=== PATIENT | female | born 1960 | race Caucasian/White ===

== ENCOUNTER 2017-01-15 15:34 | Emergency (ER) | payer SELFPAY ==
[2017-01-15 15:40] VITALS: BP 140/85; RESP 20; TEMP 98.1
[2017-01-15] MEDS ORDERED: SODIUM CHLORIDE 0.9% 1,000 ML IV STA ×4 (15:49→17:13)
[2017-01-15] MEDS ORDERED: RX INFO: IV CONTRAST WAS GIVEN 1 EACH MISC MISCELLANE PRN (15:54)
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
[2017-01-15] MEDS: MORPHINE SULFATE 10 MG/ML SYRINGE IVP STA ×2 (16:03→16:24)
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
[2017-01-15] MEDS ORDERED: IPRATROPIUM-ALBUTEROL 3 ML NEB INHALATION STA (16:08)
[2017-01-15 16:23] LABS: Basophils # (A) 0.1 k/uL (0-0.2); Basophils % (A) 1 %; CH 27.9; CHCM 32.9; Eosinophils # (A) 0.1 k/uL (0-0.7); Eosinophils % (A) 1 %; HCT 41.3 % (34.0-46.0); HDW 2.84; HGB 14.1 gm/dL (11.4-16.0); Luc # (Auto) 0.17; Luc % (Auto) 2; Lymphocytes # (A) 3.4 k/uL (1.0-4.8); Lymphocytes % (A) 39 %; MCH 29.1 pg (25.0-35.0); MCHC 34.2 g/dL (31.0-37.0); MCV 85.3 fL (80.0-100.0); Mean Platelet Volume 7.8; Monocytes # (A) 0.4 k/uL (0-1.0); Monocytes % (A) 4 %; Neutrophils # (A) 4.6 k/uL (1.3-7.7); Neutrophils % (A) 53 %; RBC 4.84 m/uL (3.80-5.40); RDW 15.4 % (11.5-15.5); WBC 8.8 k/uL (3.8-10.6); WBC (Perox) 7.88
[2017-01-15] MEDS ORDERED: ACETAMINOPHEN TAB 500 MG TAB PO STA (16:30)
[2017-01-15 16:37] LABS: Alcohol <10 mg/dL; Anion Gap 15 mmol/L; Calcium 9.2 mg/dL (8.4-10.2); Carbon Dioxide 18 mmol/L (22-30); Chloride 96 mmol/L (98-107); Non-African American GFR(MDRD) >60 (>60 ml/min/1.73 sqM); Sodium 129 mmol/L (137-145); Total Protein 7.7 g/dL (6.3-8.2)
[2017-01-15 16:47] LABS: Glucose 652 mg/dL (74-99)
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
[2017-01-15 16:48] LABS: Total Bilirubin 0.6 mg/dL (0.2-1.3)
[2017-01-15 16:49] LABS: Creatine Kinase 50 U/L (30-135)
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
[2017-01-15 16:59] LABS: INR 1.1 (<1.2); Partial Thromboplastin Time 30.7 sec (22.0-30.0); Prothrombin Time 10.8 sec (9.0-12.0)
[2017-01-15 17:02] LABS: Creatine Kinase MB 0.4 ng/mL (0.0-2.4); Troponin I <0.012 ng/mL (0.000-0.034)
[2017-01-15] MEDS ORDERED: INSULIN REGULAR 100 UNIT/ML VIAL SQ ONE (17:13)
[2017-01-15] MEDS ORDERED: INSULIN REGULAR 100 UNIT/ML VIAL IV ONE (17:13)
[2017-01-15 17:15] VITALS: PULSE 93
[2017-01-15] MEDS ORDERED: KETOROLAC 30 MG/ML 1 ML VIAL IVP STA (17:20)
[2017-01-15] MEDS ORDERED: metFORMIN 500 MG TAB PO STA (17:21)
[2017-01-15 18:28] LABS: Glucose,Whole Blood 329 mg/dL (75-99)
[2017-01-16 10:16] LABS: Potassium 5.2 mmol/L (3.5-5.1)
[2017-01-16 10:17] LABS: ALT 69 U/L (9-52); AST 71 U/L (14-36)
[2017-01-16 10:18] LABS: Alkaline Phosphatase 158 U/L (38-126)
[2017-01-16 10:19] LABS: Blood Urea Nitrogen 15 mg/dL (7-17)
== END 2017-01-15 18:47 | disposition home or self-care (01) ==
LOC: EC 15:34
DX: Z04.1 Encounter for examination and observation following transport accident (principal); J44.0 Chronic obstructive pulmonary disease with (acute) lower respiratory infection; J20.9 Acute bronchitis, unspecified; E11.9 Type 2 diabetes mellitus without complications; F17.200 Nicotine dependence, unspecified, uncomplicated; Z88.0 Allergy status to penicillin; Z91.041 Radiographic dye allergy status; Z53.20 Procedure and treatment not carried out because of patient's decision for unspecified reasons; V03.90XA Pedestrian on foot injured in collision with car, pick-up truck or van, unspecified whether traffic or nontraffic accident, initial encounter; Y92.410 Unspecified street and highway as the place of occurrence of the external cause
CPT/HCPCS: 99285; 96374; 96361 ×3; 36415; 94640 ×2; 93005; 86900; 86901; 80053; 82550; 82553; 84484; 85025; 85610; 85730; 86850; 80320; 71010; 72170; 72125; 70450; 71260; 74177; J1885; Q9967

== ENCOUNTER 2017-01-17 16:03 | Inpatient (IN) | payer SELFPAY ==
--- NOTE | 2017-01-17 16:48 | ED ---
General Adult HPI - General Chief complaint: Recheck/Abnormal Lab/Rx Stated complaint: Abnormal Labs, High blood sugar Time Seen by Provider: 01/17/17 16:31 Source: patient, RN notes reviewed, old records reviewed Mode of arrival: ambulatory Limitations: no limitations - History of Present Illness Initial comments: This is a 57-year-old female to the ER for evaluation. Patient is a for evaluation regarding elevated blood sugar. Patient's blood sugar has been very high at home. Patient is not change her diet. Try to drink more water but not be super successful. Does admit to still increased urination. No weakness no abdominal pain no nausea vomiting or diarrhea. No fevers no chest pain or shortness of breath. - Related Data Home Medications Medication Instructions Recorded Confirmed No Known Home Medications [No 01/15/17 01/17/17 Known Home Medications] Allergies Allergy/AdvReac Type Severity Reaction Status Date / Time Penicillins Allergy Unknown Verified 01/17/17 17:01 Iodinated Contrast- Oral and AdvReac BURNING Verified 01/17/17 17:01 IV Dye Review of Systems ROS Statement: Those systems with pertinent positive or pertinent negative responses have been documented in the HPI. ROS Other: All systems not noted in ROS Statement are negative. Past Medical History Past Medical History: No Reported History History of Any Multi-Drug Resistant Organisms: None Reported Past Surgical History: Hysterectomy Past Psychological History: No Psychological Hx Reported Smoking Status: Current every day smoker Past Alcohol Use History: None Reported Past Drug Use History: None Reported General Exam Limitations: no limitations General appearance: alert, in no apparent distress Head exam: Present: atraumatic, normocephalic, normal inspection Eye exam: Present: normal appearance, PERRL, EOMI. Absent: scleral icterus, conjunctival injection, periorbital swelling ENT exam: Present: normal exam, mucous membranes moist Neck exam: Present: normal inspection. Absent: tenderness, meningismus, lymphadenopathy Respiratory exam: Present: normal lung sounds bilaterally. Absent: respiratory distress, wheezes, rales, rhonchi, stridor Cardiovascular Exam: Present: regular rate, normal rhythm, normal heart sounds. Absent: systolic murmur, diastolic murmur, rubs, gallop, clicks GI/Abdominal exam: Present: soft, normal bowel sounds. Absent: distended, tenderness, guarding, rebound, rigid Extremities exam: Present: normal inspection, full ROM, normal capillary refill. Absent: tenderness, pedal edema, joint swelling, calf tenderness Back exam: Present: normal inspection Neurological exam: Present: alert, oriented X3, CN II-XII intact Psychiatric exam: Present: normal affect, normal mood Skin exam: Present: warm, dry, intact, normal color. Absent: rash Course Vital Signs 01/17/17 01/17/17 01/17/17 16:22 17:04 18:03 Temperature 98.1 F Pulse Rate 90 79 70 Respiratory 20 16 16 Rate Blood Pressure 170/74 142/85 131/80 O2 Sat by Pulse 99 97 97 Oximetry 01/17/17 18:30 Temperature Pulse Rate 80 Respiratory 16 Rate Blood Pressure 130/79 O2 Sat by Pulse 99 Oximetry - Reevaluation(s) Reevaluation #1: 01/17/17 19:09 The patient states she was not and did not receive prescriptions she was sent home with an last ER visit, was also unable to follow up with primary care EKG Findings - EKG Comments: EKG Findings:: EKG shown normal sinus rhythm rate of 79, [place] 150, QRS 84, QTC 410 Medical Decision Making - Medical Decision Making 57 female to ER for evaluation of hyperglycemia, new onset diabetes. Patient will be admitted for diabetic management, consultation controlled blood sugar, rehydration - Lab Data Result diagrams: 01/17/17 16:55 01/17/17 16:55 Lab Results 01/17/17 01/17/17 01/17/17 Range/Units 16:43 16:55 16:55 WBC (3.8-10.6) k/uL RBC (3.80-5.40) m/uL Hgb (11.4-16.0) gm/dL Hct (34.0-46.0) % MCV (80.0-100.0) fL MCH (25.0-35.0) pg MCHC (31.0-37.0) g/dL RDW (11.5-15.5) % Plt Count (150-450) k/uL Neutrophils % % Lymphocytes % % Monocytes % % Eosinophils % % Basophils % % Neutrophils # (1.3-7.7) k/uL Lymphocytes # (1.0-4.8) k/uL Monocytes # (0-1.0) k/uL Eosinophils # (0-0.7) k/uL Basophils # (0-0.2) k/uL Hypochromasia Sodium 129 L (137-145) mmol/L Potassium 4.9 (3.5-5.1) mmol/L Chloride 98 (98-107) mmol/L Carbon Dioxide 20 L (22-30) mmol/L Anion Gap 11 mmol/L BUN 10 (7-17) mg/dL Creatinine 0.80 (0.52-1.04) mg/dL Est GFR (MDRD) Af Amer >60 (>60 ml/min/1.73 sqM) Est GFR (MDRD) Non-Af >60 (>60 ml/min/1.73 sqM) Glucose 649 H* (74-99) mg/dL POC Glucose (mg/dL) >600 H (75-99) mg/dL POC Glu Attorney At Law ID Natalie Ariza Calcium 9.5 (8.4-10.2) mg/dL Phosphorus 5.2 H (2.5-4.5) mg/dL Magnesium 1.7 (1.6-2.3) mg/dL Total Bilirubin 0.4 (0.2-1.3) mg/dL AST 31 (14-36) U/L ALT 66 H (9-52) U/L Alkaline Phosphatase 159 H (38-126) U/L Total Creatine Kinase 42 (30-135) U/L CK-MB (CK-2) 0.4 (0.0-2.4) ng/mL CK-MB (CK-2) Rel Index 1.0 Troponin I <0.012 (0.000-0.034) ng/mL Total Protein 7.1 (6.3-8.2) g/dL Albumin 3.8 (3.5-5.0) g/dL Urine Color Urine Appearance (Clear) Urine pH (5.0-8.0) Ur Specific [place] (1.001-1.035) Urine Protein (Negative) Urine Glucose (UA) (Negative) Urine Ketones (Negative) Urine Blood (Negative) Urine Nitrite (Negative) Urine Bilirubin (Negative) Urine Urobilinogen (<2.0) mg/dL Ur Leukocyte Esterase (Negative) Acetone, Qual Negative (Negative) 01/17/17 01/17/17 01/17/17 Range/Units 16:55 16:55 18:16 WBC 7.9 (3.8-10.6) k/uL RBC 5.17 (3.80-5.40) m/uL Hgb 14.6 (11.4-16.0) gm/dL Hct 46.1 H (34.0-46.0) % MCV 89.2 (80.0-100.0) fL MCH 28.2 (25.0-35.0) pg MCHC 31.7 (31.0-37.0) g/dL RDW 15.3 (11.5-15.5) % Plt Count 196 (150-450) k/uL Neutrophils % 55 % Lymphocytes % 37 % Monocytes % 5 % Eosinophils % 1 % Basophils % 1 % Neutrophils # 4.3 (1.3-7.7) k/uL Lymphocytes # 2.9 (1.0-4.8) k/uL Monocytes # 0.4 (0-1.0) k/uL Eosinophils # 0.1 (0-0.7) k/uL Basophils # 0.1 (0-0.2) k/uL Hypochromasia Slight Sodium (137-145) mmol/L Potassium (3.5-5.1) mmol/L Chloride (98-107) mmol/L Carbon Dioxide (22-30) mmol/L Anion Gap mmol/L BUN (7-17) mg/dL Creatinine (0.52-1.04) mg/dL Est GFR (MDRD) Af Amer (>60 ml/min/1.73 sqM) Est GFR (MDRD) Non-Af (>60 ml/min/1.73 sqM) Glucose (74-99) mg/dL POC Glucose (mg/dL) 549 H (75-99) mg/dL POC Glu Attorney At Law ID JeannetteJaqueline Calcium (8.4-10.2) mg/dL Phosphorus (2.5-4.5) mg/dL Magnesium (1.6-2.3) mg/dL Total Bilirubin (0.2-1.3) mg/dL AST (14-36) U/L ALT (9-52) U/L Alkaline Phosphatase (38-126) U/L Total Creatine Kinase (30-135) U/L CK-MB (CK-2) (0.0-2.4) ng/mL CK-MB (CK-2) Rel Index Troponin I (0.000-0.034) ng/mL Total Protein (6.3-8.2) g/dL Albumin (3.5-5.0) g/dL Urine Color Colorless Urine Appearance Clear (Clear) Urine pH 6.5 (5.0-8.0) Ur Specific [place] 1.019 (1.001-1.035) Urine Protein Negative (Negative) Urine Glucose (UA) 4+ H (Negative) Urine Ketones Negative (Negative) Urine Blood Negative (Negative) Urine Nitrite Negative (Negative) Urine Bilirubin Negative (Negative) Urine Urobilinogen <2.0 (<2.0) mg/dL Ur Leukocyte Esterase Negative (Negative) Acetone, Qual (Negative) Disposition Clinical Impression: New onset type 2 diabetes mellitus, Hyperglycemia Disposition: ADMITTED IP TO THIS [facility] Condition: Good Referrals: Gabi De Jesus MD [Primary Care Provider] - 1-2 days
[2017-01-17 16:58] LABS: Glucose,Whole Blood >600 mg/dL (75-99)
[2017-01-17] MEDS ORDERED: SODIUM CHLORIDE 0.9% 1,000 ML IV STA ×3 (17:00→19:07)
[2017-01-17 17:19] LABS: Basophils # (A) 0.1 k/uL (0-0.2); Basophils % (A) 1 %; CH 27.9; CHCM 31.6; Eosinophils # (A) 0.1 k/uL (0-0.7); Eosinophils % (A) 1 %; HCT 46.1 % (34.0-46.0); HDW 2.78; HGB 14.6 gm/dL (11.4-16.0); Hypochromasia Slight; Luc # (Auto) 0.18; Luc % (Auto) 2; Lymphocytes # (A) 2.9 k/uL (1.0-4.8); Lymphocytes % (A) 37 %; MCH 28.2 pg (25.0-35.0); MCHC 31.7 g/dL (31.0-37.0); MCV 89.2 fL (80.0-100.0); Monocytes # (A) 0.4 k/uL (0-1.0); Monocytes % (A) 5 %; Neutrophils # (A) 4.3 k/uL (1.3-7.7); Neutrophils % (A) 55 %; RBC 5.17 m/uL (3.80-5.40); RDW 15.3 % (11.5-15.5); WBC 7.9 k/uL (3.8-10.6); WBC (Perox) 7.53
[2017-01-17 17:26] LABS: Appearance,Urine Clear (Clear); Bilirubin,Urine Negative (Negative); Glucose,Urine (UA) 4+ (Negative); Ketones,Urine Negative (Negative); Leukocyte Esterase,Urine Negative (Negative); Nitrite,Urine Negative (Negative); PH, Urine 6.5 (5.0-8.0); Protein,Urine Negative (Negative); Specific Gravity,Urine 1.019 (1.001-1.035); UA Billing (MACRO vs. MICRO) CHEM; Urobilinogen,Urine <2.0 mg/dL (<2.0)
[2017-01-17 17:30] LABS: ALT 66 U/L (9-52); AST 31 U/L (14-36); Alkaline Phosphatase 159 U/L (38-126); Anion Gap 11 mmol/L; Blood Urea Nitrogen 10 mg/dL (7-17); Calcium 9.5 mg/dL (8.4-10.2); Carbon Dioxide 20 mmol/L (22-30); Chloride 98 mmol/L (98-107); Magnesium 1.7 mg/dL (1.6-2.3); Non-African American GFR(MDRD) >60 (>60 ml/min/1.73 sqM); Phosphorus 5.2 mg/dL (2.5-4.5); Potassium 4.9 mmol/L (3.5-5.1); Sodium 129 mmol/L (137-145); Total Bilirubin 0.4 mg/dL (0.2-1.3); Total Protein 7.1 g/dL (6.3-8.2)
[2017-01-17 17:39] LABS: Glucose 649 mg/dL (74-99)
[2017-01-17 17:40] LABS: Creatine Kinase 42 U/L (30-135)
[2017-01-17 17:52] LABS: Creatine Kinase MB 0.4 ng/mL (0.0-2.4); Troponin I <0.012 ng/mL (0.000-0.034)
[2017-01-17 18:22] LABS: Glucose,Whole Blood 549 mg/dL (75-99)
[2017-01-17] MEDS ORDERED: INSULIN REGULAR 100 UNIT/ML VIAL IV ONE (19:07)
[2017-01-17] MEDS ORDERED: SODIUM CHLORIDE 0.9% 500 ML IV STA (19:07)
[2017-01-17] MEDS ORDERED: INSULIN REGULAR 100 UNIT/ML VIAL SQ ONE (19:07)
[2017-01-17] MEDS ORDERED: metFORMIN 500 MG TAB PO STA (19:31)
[2017-01-17 20:00] LABS: Glucose,Whole Blood 424 mg/dL (75-99)
[2017-01-17 20:38] LABS: Glucose,Whole Blood 390 mg/dL (75-99)
[2017-01-18 07:45] LABS: Glucose,Whole Blood 257 mg/dL (75-99)
[2017-01-18] MEDS: metFORMIN 500 MG TAB PO SCH ×2 (08:01→17:43)
[2017-01-18] MEDS: INSULIN ASPART 100 UNIT/ML 1 ML 10 ML VIAL SQ SCH ×3 (08:01→17:43)
[2017-01-18 11:43] VITALS: BMI 19.5
[2017-01-18 12:31] LABS: Glucose,Whole Blood 175 mg/dL (75-99)
[2017-01-18] MEDS: glipiZIDE 5 MG TAB PO SCH (12:57)
[2017-01-18 16:56] LABS: Glucose,Whole Blood 156 mg/dL (75-99)
[2017-01-18] MEDS ORDERED: HYDROcodone/APAP 5-325MG 1 EACH TAB PO PRN (17:09)
--- NOTE | 2017-01-18 19:10 | HP ---
HISTORY AND PHYSICAL DATE OF SERVICE: 01/18/2017 CHIEF COMPLAINT: High blood sugar. HISTORY OF PRESENT ILLNESS: This 57-year-old woman with a past history of multiple medical problems including DJD and hysterectomy was noted to have elevated blood sugars. At home the blood sugar was found to be high and the patient also had heightened urination also. The patient came to [facility] and admitted for further evaluation and treatment. On admission, the patient had elevated blood sugars up to 649. The ketones are negative and sodium is 120. Patient admitted for further evaluation and treatment. The patient initially received brief course of insulin drip in the ER. Otherwise there is no history of fever, rigors. No history of headache, loss of consciousness or seizures. PAST MEDICAL HISTORY: History of hysterectomy, history of nicotine dependence. MEDICATIONS ARE: Home medications are none. ALLERGIES: PENICILLIN, IODINATED CONTRAST DYE. FAMILY HISTORY: History of CAD, CABG, diabetes in the family. SOCIAL HISTORY: History of smoking. No history of alcohol intake. REVIEW OF SYSTEMS: ENT: No diminished vision. No diminished hearing. Cardio system: No angina or palpitations. Respiratory: No cough or hemoptysis. There is no cough or hemoptysis. GI no nausea, vomiting or diarrhea. no dysuria. Central nervous system: No numbness or weakness. Allergy/Immunology: No asthma or hayfever. Musculoskeletal: As mentioned earlier. Hematology/Oncology: No history of anemia. Endocrine: No history of diabetes, hypothyroidism. Constitutional: As mentioned earlier. Dermatology: Negative. Rheumatology: Negative. Psychiatric: As mentioned earlier. PHYSICAL EXAMINATION: Alert and oriented times three. Pulse 76, blood pressure 127/74, respiration 16, temperature 98.1, pulse ox 94% on room air. HEENT: Conjunctivae normal. NECK: No jugular venous distention. CARDIOVASCULAR: S1, S2 muffled. RESPIRATORY: Breath sounds diminished at the bases. No rhonchi. No crackles. ABDOMEN: Soft, nontender. No mass palpable. Legs no edema no swelling. NERVOUS SYSTEM: Higher functions as mentioned earlier. Moves all 4 limbs. No focal motor or sensory deficits. Lymphatics: No lymph nodes palpable in the neck, axillae or groin. Skin: No ulcer, rash or bleeding. LABS: At this time shows WBC 7.8, hemoglobin 14.6, sodium 129, glucose 640. ASSESSMENT: 1. New onset uncontrolled diabetes mellitus type 2, possible hyperosmolar nonketotic stage. 2. History of hysterectomy. 3. History of degenerative joint disease. RECOMMENDATIONS AND DISCUSSION: Recommend to continue current medications and symptomatic treatment. Otherwise I would recommend initiate metformin and glipizide. Otherwise, monitor blood sugars closely. The prognosis guarded because of multiple complex medical issues. DVT prophylaxis. Increase ambulation. Further recommendations will depend on the clinical course of the patient. Discussed with the patient who understand and agrees. Further recommendations to follow. MMODL / IJN: [id number] /
[2017-01-18] MEDS: HEPARIN SODIUM,PORCINE 5,000 UNIT/ML 1 ML VIAL SQ SCH (20:53)
[2017-01-18 20:58] LABS: Glucose,Whole Blood 224 mg/dL (75-99)
[2017-01-19 06:11] VITALS: BP 125/70; PULSE 64; RESP 18; TEMP 98
[2017-01-19 07:18] LABS: Glucose,Whole Blood 234 mg/dL (75-99)
[2017-01-19] MEDS ORDERED: INSULIN ASPART 100 UNIT/ML 1 ML 10 ML VIAL SQ SCH (07:30)
[2017-01-19] MEDS ORDERED: PANTOPRAZOLE 40 MG TABLET PO SCH (07:30)
[2017-01-19 08:04] LABS: Basophils % (A) 1 %; CH 28.6; CHCM 32.6; Eosinophils # (A) 0.2 k/uL (0-0.7); Eosinophils % (A) 2 %; HCT 41.4 % (34.0-46.0); HDW 2.87; HGB 13.4 gm/dL (11.4-16.0); Luc # (Auto) 0.23; Luc % (Auto) 3; Lymphocytes # (A) 3.5 k/uL (1.0-4.8); Lymphocytes % (A) 43 %; MCH 28.7 pg (25.0-35.0); MCHC 32.5 g/dL (31.0-37.0); MCV 88.5 fL (80.0-100.0); Mean Platelet Volume 6.8; Monocytes # (A) 0.3 k/uL (0-1.0); Monocytes % (A) 4 %; Neutrophils % (A) 48 %; RBC 4.68 m/uL (3.80-5.40); RDW 13.9 % (11.5-15.5); WBC 8.2 k/uL (3.8-10.6); WBC (Perox) 8.14
[2017-01-19] MEDS: glipiZIDE 5 MG TAB PO SCH (08:16)
[2017-01-19] MEDS: metFORMIN 500 MG TAB PO SCH (08:16)
[2017-01-19] MEDS: HEPARIN SODIUM,PORCINE 5,000 UNIT/ML 1 ML VIAL SQ SCH (08:17)
[2017-01-19 08:19] LABS: Anion Gap 8 mmol/L; Blood Urea Nitrogen 10 mg/dL (7-17); Calcium 9.1 mg/dL (8.4-10.2); Carbon Dioxide 20 mmol/L (22-30); Chloride 108 mmol/L (98-107); Glucose 240 mg/dL (74-99); Non-African American GFR(MDRD) >60 (>60 ml/min/1.73 sqM); Potassium 4.4 mmol/L (3.5-5.1); Sodium 136 mmol/L (137-145)
[2017-01-19 12:21] LABS: Glucose,Whole Blood 232 mg/dL (75-99)
--- NOTE | 2017-01-19 14:35 | P.DS ---
Providers Date of admission: 01/17/17 19:10 Attending physician: Fidel Montague Primary care physician: Liza Akhtar [facility] Course: This 57-year-old woman was admitted with the new onset diabetes mellitus type 2. There is no evidence of acute diabetic ketoacidosis. Hyperosmolar nonketotic state was suspected. Patient was treated with oral hypoglycemics. Patient improved significantly. Patient be discharged in a stable pressure the guarded prognosis. On exam vitals are stable. Cardio S1 and S2 normal. Respirator system. Prostration. Abdomen soft nontender. Nervous system no focal deficit. I've recommended the patient to keep a glucose log and to follow-up with the primary physician Dr. Ryan. Final diagnosis 1. New onset uncontrolled diabetes mellitus type 2 possibly hyperosmolar nonketotic state. 2. History of hysterectomy. 3. History of DJD. Patient Condition at Discharge: Good Plan - Discharge Summary New Discharge Prescriptions: New glipiZIDE [Glucotrol] 5 mg PO AC-BRKFST #30 tab metFORMIN HCL [Glucophage] 500 mg PO BID-W/MEALS #60 tab Discharge Medication List glipiZIDE [Glucotrol] 5 mg PO AC-BRKFST #30 tab 01/19/17 [Rx] metFORMIN HCL [Glucophage] 500 mg PO BID-W/MEALS #60 tab 01/19/17 [Rx] Follow up Appointment(s)/Referral(s): Gabi Ryan MD [Primary Care Provider] - 1-2 days Activity/Diet/Wound Care/Special Instructions: diet consistent carb act limited till f/u ac achs and results to dr ryan Discharge Disposition: HOME SELF-CARE
== END 2017-01-19 13:55 | disposition home or self-care (01) | DRG 639 ==
LOC: EC 16:03 → 4MS4W 19:10
PROVIDERS: ADMIT Hospitalist; ATTEND Hospitalist
DX: E11.00 Type 2 diabetes mellitus with hyperosmolarity without nonketotic hyperglycemic-hyperosmolar coma (NKHHC) (principal); F17.200 Nicotine dependence, unspecified, uncomplicated; Z83.3 Family history of diabetes mellitus; M19.90 Unspecified osteoarthritis, unspecified site; Z88.0 Allergy status to penicillin; Z91.041 Radiographic dye allergy status
CPT/HCPCS: 36415; 80048; 80053; 81003; 82009; 82550; 82553; 83036; 83735; 84100; 84484; 85025; 87086; 93005; 96360; 96361; 99284

== ENCOUNTER 2020-07-07 23:18 | Emergency (ER) | payer OTHER ==
[2020-07-07 23:31] VITALS: TEMP 98
[2020-07-07] MEDS ORDERED: HYDROmorphone 0.5 MG/0.5 ML SYRINGE IVP STA (23:41)
[2020-07-07] MEDS ORDERED: SODIUM CHLORIDE 0.9% 1,000 ML IV STA (23:41)
[2020-07-07] MEDS ORDERED: KETOROLAC 15 MG/ML 1 ML VIAL IVP STA (23:41)
[2020-07-07] MEDS ORDERED: ONDANSETRON 4 MG/2 ML VIAL IVP STA (23:41)
[2020-07-08 00:09] LABS: Basophils # (A) 0.1 k/uL (0-0.2); Basophils % (A) 1 %; Eosinophils # (A) 0.2 k/uL (0-0.7); Eosinophils % (A) 2 %; HCT 45.9 % (34.0-46.0); HGB 15.3 gm/dL (11.4-16.0); Lymphocytes # (A) 4.5 k/uL (1.0-4.8); Lymphocytes % (A) 43 %; MCH 28.5 pg (25.0-35.0); MCHC 33.2 g/dL (31.0-37.0); MCV 85.7 fL (80.0-100.0); Mean Platelet Volume 7.5; Monocytes # (A) 0.5 k/uL (0-1.0); Monocytes % (A) 4 %; Neutrophils % (A) 48 %; Platelet Count 235 k/uL (150-450); RBC 5.36 m/uL (3.80-5.40); RDW 14.6 % (11.5-15.5); WBC 10.5 k/uL (3.8-10.6)
[2020-07-08 00:25] LABS: Albumin 4.3 g/dL (3.5-5.0); Calcium 9.6 mg/dL (8.4-10.2); Potassium 4.6 mmol/L (3.5-5.1); Total Bilirubin 0.4 mg/dL (0.2-1.3); Total Protein 7.7 g/dL (6.3-8.2)
--- NOTE | 2020-07-08 00:36 | CT ---
EXAM: CT Abdomen and Pelvis Without Intravenous Contrast CLINICAL HISTORY: ITS.REASON CT Reason: Right flank pain TECHNIQUE: Axial computed tomography images of the abdomen and pelvis without intravenous contrast. CTDI is 6.17 mGy and DLP is 326.6 mGy-cm. This CT exam was performed using one or more of the following dose reduction techniques: automated exposure control, adjustment of the mA and/or kV according to patient size, and/or use of iterative reconstruction technique. COMPARISON: 01/15/2017. FINDINGS: Lung bases: Minimal subsegmental atelectasis at the lung bases. Heart: Heart is normal in size. ABDOMEN: Liver: The liver and the spleen are normal in contour. Gallbladder and bile ducts: No gallstones. No ductal dilation. Pancreas: See below. Spleen: See above. Adrenals: The adrenal glands, the head, body, tail of the pancreas are within normal limits. Kidneys and ureters: No renal calculus or hydronephrosis. Stomach and bowel: Moderate quantity of ingested material in the stomach. Moderate quantity of stool throughout the colon. No bowel obstruction. Diverticulosis without diverticulitis. PELVIS: Appendix: No findings to suggest acute appendicitis. Bladder: Unremarkable. No stones. Reproductive: Status post hysterectomy. ABDOMEN and PELVIS: Intraperitoneal space: Unremarkable. No free air. No significant fluid collection. Bones/joints: No spondylolysis. No acute fracture. No dislocation. Soft tissues: Ischiorectal fat is clean. Inflammatory changes about the gluteal fold right of midline best seen on series 201 image 135 worrisome for cellulitis. Clinical correlation is advised. Vasculature: Unremarkable. No abdominal aortic aneurysm. Lymph nodes: No pelvic or inguinal lymphadenopathy. Other findings: Minimal ASCVD. IMPRESSION: 1. Inflammatory changes the gluteal fold right of midline possibly on the basis of cellulitis. Clinical correlation is advised to 2. ASCVD. 3. The gallbladder is unremarkable. 4. No renal calculus or hydronephrosis. 5. Moderate quantity of stool throughout the colon. 6. Diverticulosis without diverticulitis.
[2020-07-08] MEDS ORDERED: SODIUM CHLORIDE 0.9% 500 ML 500 ML IV ONE (00:37)
[2020-07-08] MEDS ORDERED: INSULIN ASPART (NovoLOG) 100 UNIT/ML VIAL SQ STA (01:00)
[2020-07-08 01:06] LABS: Glucose,Whole Blood 367 mg/dL (75-99)
[2020-07-08] MEDS ORDERED: INSULIN ASPART (NovoLOG) 100 UNIT/ML VIAL SQ ONE (01:06)
--- NOTE | 2020-07-08 01:22 | ED ---
General Adult HPI - General Chief complaint: Back Pain/Injury Stated complaint: Back pain, constipation Time Seen by Provider: 07/07/20 23:32 Source: patient Mode of arrival: ambulatory - History of Present Illness Initial comments: 60 year-old female patient presents for evaluation of right flank pain that started a couple of days ago. States that pain worsened significantly today. States she is having some pain radiating into the abdomen. States she has been constipated and has only had a couple of small bowel movements over the last couple of weeks. States that she has been urinating without difficulty. Denies fever or chills. Denies any nausea or vomiting. Reports history of hysterectomy and appendectomy. States she does have history of back pain, but not in this lo cation and this feels different. She denies any radiation down the legs. Denies any numbness or tingling to the lower extremities, saddle anesthesia, or loss of bowel or bladder control. Patient denies any recent rash, cough, shortness of breath, chest pain, numbness, tingling, dizziness, weakness, hematuria, dysuria, urinary urgency, urinary frequency, headache, visual changes, or any other comp laints. - Related Data Previous Rx's Medication Instructions Recorded glipiZIDE [Glucotrol] 5 mg PO AC-BRKFST #30 tab 01/19/17 metFORMIN HCL [Glucophage] 500 mg PO BID-W/MEALS #60 tab 01/19/17 Allergies Allergy/AdvReac Type Severity Reaction Status Date / Time Penicillins Allergy Unknown Verified 07/07/20 23:31 Iodinated Contrast Media AdvReac BURNING Verified 07/07/20 23:31 [Iodinated Contrast- Oral and IV Dye] Review of Systems ROS Statement: Those systems with pertinent positive or pertinent negative responses have been documented in the HPI. ROS Other: All systems not noted in ROS Statement are negative. Past Medical History Past Medical History: No Reported History History of Any Multi-Drug Resistant Organisms: None Reported Past Surgical History: Hysterectomy Additional Past Surgical History / Comment(s): shoulder surgery, knuckle stitches Past Psychological History: No Psychological Hx Reported Smoking Status: Never smoker Past Alcohol Use History: None Reported Past Drug Use History: None Reported - Past Family History Father History Unknown: Yes Family Medical History: Diabetes Mellitus Additional Family Medical History / Comment(s): CABG Mother History Unknown: Yes Additional Family Medical History / Comment(s): borderline diabetic Sister(s) History Unknown: Yes Family Medical History: Diabetes Mellitus Additional Family Medical History / Comment(s): heart disease, pt states "a lot of other things that I don't know" Brother(s) Additional Family Medical History / Comment(s): Unsure Daughter(s) History Unknown: Yes Additional Family Medical History / Comment(s): "stomach ulcers" Brother(s) Son(s) Additional Family Medical History / Comment(s): none known. General Exam General appearance: alert, in no apparent distress, other (Physical well- developed, well-nourished adult female patient in no acute distress. Vital signs upon presentation are temperature 98.0F, pulse 80, respirations 19, blood pressure 117/73, pulse ox 100% on room air.) Eye exam: Present: normal appearance, PERRL, EOMI. Absent: scleral icterus, conjunctival injection, periorbital swelling ENT exam: Present: normal exam, normal oropharynx, mucous membranes moist Respiratory exam: Present: normal lung sounds bilaterally. Absent: respiratory distress, wheezes, rales, rhonchi, stridor Cardiovascular Exam: Present: regular rate, normal rhythm, normal heart sounds. Absent: systolic murmur, diastolic murmur, rubs, gallop, clicks GI/Abdominal exam: Present: soft, tenderness (Right upper and lower quadrant), normal bowel sounds. Absent: distended, guarding, rebound, rigid Neurological exam: Present: alert, oriented X3, CN II-XII intact Psychiatric exam: Present: normal affect, normal mood Skin exam: Present: warm, dry, intact, normal color. Absent: rash Course Vital Signs 07/07/20 07/08/20 07/08/20 23:27 00:47 02:10 Temperature 98 F Pulse Rate 80 91 62 Respiratory 19 18 16 Rate Blood Pressure 117/73 117/75 110/77 O2 Sat by Pulse 100 96 97 Oximetry EKG Findings - EKG Comments: EKG Findings:: EKG obtained at 0:06 shows normal sinus rhythm with a ventricular rate of 76, TX interval 154, QRS duration 78, QT 384, QTC 432. No evidence of ST elevation or depression. Medical Decision Making - Medical Decision Making 60-year-old female patient presents to the emergency department today for evaluation of right flank pain. Physical examination did reveal mild right upper and right lower quadrant tenderness. Labs reviewed and did reveal elevated blood sugar over 500. Acetone was negative. CT abdomen and pelvis was obtained and showed cutaneous inflammatory changes of the right gluteal fold. ASCAD. Moderate stool throughout the colon. I did discuss findings and results with the patient. She would like to try an enema. She did have a small bowel movement states this did improve symptoms somewhat. She'll be discharged with a bottle of magnesium citrate. Instructed to follow-up with her primary care physician for recheck in 1-2 days. She would like recommendation for new PCP. Return parameters were discussed in detail. She verbalizes understanding and agrees with this plan. My attending is Dr. Amaro. - Lab Data Result diagrams: 07/07/20 23:48 07/07/20 23:48 Lab Results 07/07/20 07/07/20 07/07/20 Range/Units 23:48 23:48 23:48 WBC 10.5 (3.8-10.6) k/uL RBC 5.36 (3.80-5.40) m/uL Hgb 15.3 (11.4-16.0) gm/dL Hct 45.9 (34.0-46.0) % MCV 85.7 (80.0-100.0) fL MCH 28.5 (25.0-35.0) pg MCHC 33.2 (31.0-37.0) g/dL RDW 14.6 (11.5-15.5) % Plt Count 235 (150-450) k/uL MPV 7.5 Neutrophils % 48 % Lymphocytes % 43 % Monocytes % 4 % Eosinophils % 2 % Basophils % 1 % Neutrophils # 5.0 (1.3-7.7) k/uL Lymphocytes # 4.5 (1.0-4.8) k/uL Monocytes # 0.5 (0-1.0) k/uL Eosinophils # 0.2 (0-0.7) k/uL Basophils # 0.1 (0-0.2) k/uL Sodium 130 L (137-145) mmol/L Potassium 4.6 (3.5-5.1) mmol/L Chloride 98 (98-107) mmol/L Carbon Dioxide 21 L (22-30) mmol/L Anion Gap 11 mmol/L BUN 10 (7-17) mg/dL Creatinine 0.82 (0.52-1.04) mg/dL Est GFR (CKD-EPI)AfAm 89 (>60 ml/min/1.73 sqM) Est GFR (CKD-EPI)NonAf 77 (>60 ml/min/1.73 sqM) Glucose 512 H* (74-99) mg/dL POC Glucose (mg/dL) (75-99) mg/dL POC Glu Hog Counter ID Lactic Ac Sepsis Rflx Plasma Lactic Acid Randolph 2.1 H* (0.7-2.0) mmol/L Calcium 9.6 (8.4-10.2) mg/dL Total Bilirubin 0.4 (0.2-1.3) mg/dL AST 21 (14-36) U/L ALT 19 (4-34) U/L Alkaline Phosphatase 151 H (38-126) U/L Total Protein 7.7 (6.3-8.2) g/dL Albumin 4.3 (3.5-5.0) g/dL Lipase 135 (23-300) U/L Urine Color Urine Appearance (Clear) Urine pH (5.0-8.0) Ur Specific [place] (1.001-1.035) Urine Protein (Negative) Urine Glucose (UA) (Negative) Urine Ketones (Negative) Urine Blood (Negative) Urine Nitrite (Negative) Urine Bilirubin (Negative) Urine Urobilinogen (<2.0) mg/dL Ur Leukocyte Esterase (Negative) Acetone, Qual (Negative) 07/07/20 07/08/20 07/08/20 Range/Units 23:48 00:36 01:04 WBC (3.8-10.6) k/uL RBC (3.80-5.40) m/uL Hgb (11.4-16.0) gm/dL Hct (34.0-46.0) % MCV (80.0-100.0) fL MCH (25.0-35.0) pg MCHC (31.0-37.0) g/dL RDW (11.5-15.5) % Plt Count (150-450) k/uL MPV Neutrophils % % Lymphocytes % % Monocytes % % Eosinophils % % Basophils % % Neutrophils # (1.3-7.7) k/uL Lymphocytes # (1.0-4.8) k/uL Monocytes # (0-1.0) k/uL Eosinophils # (0-0.7) k/uL Basophils # (0-0.2) k/uL Sodium (137-145) mmol/L Potassium (3.5-5.1) mmol/L Chloride (98-107) mmol/L Carbon Dioxide (22-30) mmol/L Anion Gap mmol/L BUN (7-17) mg/dL Creatinine (0.52-1.04) mg/dL Est GFR (CKD-EPI)AfAm (>60 ml/min/1.73 sqM) Est GFR (CKD-EPI)NonAf (>60 ml/min/1.73 sqM) Glucose (74-99) mg/dL POC Glucose (mg/dL) 367 H (75-99) mg/dL POC Glu Hog Counter ID Maira Mckenzie Lactic Ac Sepsis Rflx Y Plasma Lactic Acid [place] (0.7-2.0) mmol/L Calcium (8.4-10.2) mg/dL Total Bilirubin (0.2-1.3) mg/dL AST (14-36) U/L ALT (4-34) U/L Alkaline Phosphatase (38-126) U/L Total Protein (6.3-8.2) g/dL Albumin (3.5-5.0) g/dL Lipase (23-300) U/L Urine Color Urine Appearance (Clear) Urine pH (5.0-8.0) Ur Specific [place] (1.001-1.035) Urine Protein (Negative) Urine Glucose (UA) (Negative) Urine Ketones (Negative) Urine Blood (Negative) Urine Nitrite (Negative) Urine Bilirubin (Negative) Urine Urobilinogen (<2.0) mg/dL Ur Leukocyte Esterase (Negative) Acetone, Qual Negative (Negative) 07/08/20 07/08/20 Range/Units 01:14 02:39 WBC (3.8-10.6) k/uL RBC (3.80-5.40) m/uL Hgb (11.4-16.0) gm/dL Hct (34.0-46.0) % MCV (80.0-100.0) fL MCH (25.0-35.0) pg MCHC (31.0-37.0) g/dL RDW (11.5-15.5) % Plt Count (150-450) k/uL MPV Neutrophils % % Lymphocytes % % Monocytes % % Eosinophils % % Basophils % % Neutrophils # (1.3-7.7) k/uL Lymphocytes # (1.0-4.8) k/uL Monocytes # (0-1.0) k/uL Eosinophils # (0-0.7) k/uL Basophils # (0-0.2) k/uL Sodium (137-145) mmol/L Potassium (3.5-5.1) mmol/L Chloride (98-107) mmol/L Carbon Dioxide (22-30) mmol/L Anion Gap mmol/L BUN (7-17) mg/dL Creatinine (0.52-1.04) mg/dL Est GFR (CKD-EPI)AfAm (>60 ml/min/1.73 sqM) Est GFR (CKD-EPI)NonAf (>60 ml/min/1.73 sqM) Glucose (74-99) mg/dL POC Glucose (mg/dL) 268 H (75-99) mg/dL POC Glu Hog Counter ID Maira Mckenzie Lactic Ac Sepsis Rflx Plasma Lactic Acid [place] (0.7-2.0) mmol/L Calcium (8.4-10.2) mg/dL Total Bilirubin (0.2-1.3) mg/dL AST (14-36) U/L ALT (4-34) U/L Alkaline Phosphatase (38-126) U/L Total Protein (6.3-8.2) g/dL Albumin (3.5-5.0) g/dL Lipase (23-300) U/L Urine Color Light Yellow Urine Appearance Clear (Clear) Urine pH 5.5 (5.0-8.0) Ur Specific [place] 1.037 H (1.001-1.035) Urine Protein Negative (Negative) Urine Glucose (UA) 4+ H (Negative) Urine Ketones Negative (Negative) Urine Blood Negative (Negative) Urine Nitrite Negative (Negative) Urine Bilirubin Negative (Negative) Urine Urobilinogen <2.0 (<2.0) mg/dL Ur Leukocyte Esterase Negative (Negative) Acetone, Qual (Negative) - Radiology Data Radiology results: report reviewed, image reviewed CT abdomen and pelvis was obtained. Report was reviewed in its entirety. Impression by Dr. Lang shows inflammatory changes of the gluteal fold right of midline possibly on the basis of cellulitis. Clinical correlation is advised . ASCVD. The gallbladder is unremarkable. No renal calculus or hydronephrosis. Moderate quantity of stool throughout the colon. Diverticulosis without diverticulitis. Disposition Clinical Impression: Flank pain, Hyperglycemia Disposition: HOME SELF-CARE Condition: Good Instructions (If sedation given, give patient instructions): Constipation (ED), Abdominal Pain (ED), Flank Pain (ED), Diabetic Hyperglycemia (ED) Additional Instructions: Increase fluids. Follow-up with primary care physician for recheck in 1-2 days. Return for any new, worsening, or concerning symptoms. Is patient prescribed a controlled substance at d/c from ED?: No Referrals: Luis Vick [STAFF PHYSICIAN] - 1-2 days Time of Disposition: 02:44
[2020-07-08 01:49] LABS: Appearance,Urine Clear (Clear); Bilirubin,Urine Negative (Negative); Blood,Urine Negative (Negative); Color,Urine Light Yellow; Glucose,Urine (UA) 4+ (Negative); Ketones,Urine Negative (Negative); Leukocyte Esterase,Urine Negative (Negative); Nitrite,Urine Negative (Negative); PH, Urine 5.5 (5.0-8.0); Protein,Urine Negative (Negative); Specific Gravity,Urine 1.037 (1.001-1.035); Urobilinogen,Urine <2.0 mg/dL (<2.0)
[2020-07-08 02:36] VITALS: BP 110/77; PULSE 62; RESP 16
[2020-07-08 02:41] LABS: Glucose,Whole Blood 268 mg/dL (75-99)
[2020-07-08] MEDS ORDERED: MAGNESIUM CITRATE 296 ML BOTTLE PO ONE (02:44)
== END 2020-07-08 02:50 | disposition home or self-care (01) ==
LOC: EC 23:18
DX: R73.9 Hyperglycemia, unspecified (principal); Z90.710 Acquired absence of both cervix and uterus
CPT/HCPCS: 36415 ×2; 93005; 80053; 82009; 83605; 83690; 85025; 81003; 74176; 99284; 96374; 96375 ×2; 96361; J2405; J1885; J1170

== ENCOUNTER 2022-01-20 10:18 | Inpatient (IN) | payer OTHER ==
[2022-01-20] MEDS ORDERED: ASPIRIN 81 MG PO STA (10:23)
[2022-01-20 10:25] VITALS: TEMP 97.6
[2022-01-20 10:25] LABS: Glucose,Whole Blood 386 mg/dL (70-110)
[2022-01-20] MEDS ORDERED: HEPARIN SOD,PORK IN 0.45% NACL 25,000 UNIT in 0.45% NACL 1 250ML.BAG IV SCH (10:30)
[2022-01-20] MEDS ORDERED: HEPARIN SODIUM 1,000 UN/ML (10ML VL) IV ONE (10:30)
[2022-01-20] MEDS ORDERED: ATORVASTATIN 40 MG TAB PO STA (10:30)
[2022-01-20] MEDS ORDERED: HEPARIN SODIUM 1,000 UN/ML (10ML VL) IV PRN (10:30)
--- NOTE | 2022-01-20 10:30 | ED ---
General Adult HPI - General Stated complaint: Stemi Time Seen by Provider: 01/20/22 10:18 Source: patient, EMS, RN notes reviewed Mode of arrival: EMS Limitations: no limitations - History of Present Illness Initial comments: Patient is a pleasant [age]-year-old female presenting to the emergency department with concern with chest discomfort. Onset of symptoms was a week ago. Symptoms worsened today. Discomfort feels like pressure and is currently severe or no radiation. Patient does have some associated dyspnea and sweating. No nausea. No history of similar symptoms previously. No leg pain or leg swelling. No history of similar symptoms previously. Patient is a smoker and is diabetic. - Related Data Previous Rx's Medication Instructions Recorded glipiZIDE [Glucotrol] 5 mg PO AC-BRKFST #30 tab 01/19/17 metFORMIN HCL [Glucophage] 500 mg PO BID-W/MEALS #60 tab 01/19/17 Allergies Allergy/AdvReac Type Severity Reaction Status Date / Time Penicillins Allergy Unknown Verified 01/20/22 10:26 Iodinated Contrast Media AdvReac BURNING Verified 01/20/22 10:26 [Iodinated Contrast- Oral and IV Dye] Review of Systems ROS Statement: Those systems with pertinent positive or pertinent negative responses have been documented in the HPI. ROS Other: All systems not noted in ROS Statement are negative. Constitutional: Denies: fever Eyes: Denies: eye pain ENT: Denies: ear pain Respiratory: Reports: as per HPI. Denies: cough Cardiovascular: Reports: as per HPI, chest pain Endocrine: Denies: fatigue Gastrointestinal: Denies: abdominal pain, nausea Genitourinary: Denies: dysuria Musculoskeletal: Denies: back pain Skin: Denies: rash Neurological: Denies: weakness Past Medical History Past Medical History: No Reported History History of Any Multi-Drug Resistant Organisms: None Reported Past Surgical History: Hysterectomy Additional Past Surgical History / Comment(s): shoulder surgery, knuckle stitches Past Psychological History: No Psychological Hx Reported Smoking Status: Never smoker Past Alcohol Use History: None Reported Past Drug Use History: None Reported - Past Family History Father History Unknown: Yes Family Medical History: Diabetes Mellitus Additional Family Medical History / Comment(s): CABG Mother History Unknown: Yes Additional Family Medical History / Comment(s): borderline diabetic Sister(s) History Unknown: Yes Family Medical History: Diabetes Mellitus Additional Family Medical History / Comment(s): heart disease, pt states "a lot of other things that I don't know" Brother(s) Additional Family Medical History / Comment(s): Unsure Daughter(s) History Unknown: Yes Additional Family Medical History / Comment(s): "stomach ulcers" Brother(s) Son(s) Additional Family Medical History / Comment(s): none known. General Exam Limitations: no limitations General appearance: alert Head exam: Present: normocephalic Eye exam: Present: normal appearance Neck exam: Present: normal inspection Respiratory exam: Present: normal lung sounds bilaterally. Absent: chest wall tenderness Cardiovascular Exam: Present: regular rate, normal rhythm, normal heart sounds Expanded Peripheral pulses: 2+: Radial (R), Radial (L), Dorsalis Pedis (R), Dorsalis Pedis (L) GI/Abdominal exam: Present: soft. Absent: tenderness Extremities exam: Present: normal inspection. Absent: pedal edema, calf tenderness Neurological exam: Present: alert Psychiatric exam: Present: normal affect, normal mood Skin exam: Present: normal color Course Vital Signs 01/20/22 01/20/22 01/20/22 10:18 10:23 10:32 Temperature 97.6 F Pulse Rate 90 87 Pulse Rate [ 85 Manufacturers Service Representative ] Respiratory 26 H 18 Rate Blood Pressure 92/35 92/68 O2 Sat by Pulse 100 100 Oximetry 01/20/22 10:43 Temperature Pulse Rate 81 Pulse Rate [ [employer] Service Representative ] Respiratory 20 Rate Blood Pressure 87/68 O2 Sat by Pulse 100 Oximetry - Reevaluation(s) Reevaluation #1: 01/20/22 10:25 Case was discussed with Clinical Nursing DirectorTanya Caraballo who did report to Dr. Hernandez 01/20/22 10:38 Patient still uncomfortable. Heparin started. Family is present and updated. Case was discussed with Dr. Bal, who will admit covering Dr. Alison velazquez. EKG Findings - EKG Comments: EKG Findings:: Interpreted by myself. Sinus rhythm rate 90. IL 137. QRS 96. QT 383. QTC 431. Normal axis. Normal QRS. ST elevation. 3 through V5. B orderline inferior ST change. Medical Decision Making - Medical Decision Making Patient was again reevaluated with slight improvement. Patient has gone to Clinical Nursing Director. - Lab Data Result diagrams: 01/20/22 10:24 Lab Results 01/20/22 01/20/22 Range/Units 10:23 10:24 Sodium 136 L (137-145) mmol/L Potassium 4.6 (3.5-5.1) mmol/L Chloride 102 (98-107) mmol/L Carbon Dioxide 18 L (22-30) mmol/L Anion Gap 16 mmol/L BUN 17 (7-17) mg/dL Creatinine 1.04 (0.52-1.04) mg/dL Est GFR (CKD-EPI)AfAm 66 (>60 ml/min/1.73 sqM) Est GFR (CKD-EPI)NonAf 57 (>60 ml/min/1.73 sqM) Glucose 424 H (74-99) mg/dL POC Glucose (mg/dL) 386 H (70-110) mg/dL POC Glu Shoe Trimmer ID Evaristo Hagen Calcium 9.9 (8.4-10.2) mg/dL Magnesium 2.0 (1.6-2.3) mg/dL Total Bilirubin 0.8 (0.2-1.3) mg/dL AST 28 (14-36) U/L ALT 19 (4-34) U/L Alkaline Phosphatase 157 H (38-126) U/L Total Protein 7.8 (6.3-8.2) g/dL Albumin 4.7 (3.5-5.0) g/dL - Radiology Data Interpreted by me: Chest x-ray shows normal heart size. No pneumothorax. No widened mediastinum. Mild coarse interstitium. Critical Care Time Critical Care Time: Yes Total Critical Care Time: 30 Disposition Clinical Impression: ST elevation myocardial infarction (STEMI) Disposition: ADMITTED IP TO THIS HOSP Condition: Critical Is patient prescribed a controlled substance at d/c from ED?: No Referrals: Gabi De Jesus MD [Primary Care Provider] - 1-2 days Time of Disposition: 10:49
[2022-01-20 10:35] LABS: HCT 49.9 % (34.0-46.0); HGB 16.6 gm/dL (11.4-16.0); MCHC 33.3 g/dL (31.0-37.0); Mean Platelet Volume 8.2; Platelet Count 270 k/uL (150-450); RBC 5.94 m/uL (3.80-5.40); RDW 14.2 % (11.5-15.5)
[2022-01-20 10:47] LABS: Albumin 4.7 g/dL (3.5-5.0); Calcium 9.9 mg/dL (8.4-10.2); Potassium 4.6 mmol/L (3.5-5.1); Total Bilirubin 0.8 mg/dL (0.2-1.3); Total Protein 7.8 g/dL (6.3-8.2)
--- NOTE | 2022-01-20 10:59 | XR ---
EXAMINATION TYPE: XR chest 1V portable DATE OF EXAM: 01/20/2022 HISTORY: Shortness of breath. COMPARISON: 01/15/2017 TECHNIQUE: Single view of the chest is submitted. FINDINGS: Demonstrated are scattered senescent parenchymal change. Mild increased density right infrahilar region could reflect summation shadow however developing infi ltrate is difficult to exclude. Correlate clinically. Follow-up until resolution recommended. The heart is stable. Hilar and mediastinal structures are within normal limits. Degenerative changes are seen of the dorsal spine. IMPRESSION: 1. Mild increased density right infrahilar region could reflect summation shadow however developing infiltrate is difficult to exclude. Correlate clinically. Follow-up until resolution recommended.
[2022-01-20] MEDS ORDERED: IV FLUID CONTINUATION 1,000 ML IV ONE ×2 (11:00)
[2022-01-20] MEDS ORDERED: HEPARIN SODIUM 1,000 UN/ML (10ML VL) ONE (11:03)
[2022-01-20] MEDS ORDERED: fentaNYL (PF) 50 MCG/ML 2 ML AMP ONE (11:03)
--- NOTE | 2022-01-20 11:04 | P.CRDCN ---
History of Present Illness History of present illness: HISTORY OF PRESENTING ILLNESS This is a pleasant 62-year-old with past medical history significant for diabetes mellitus type 2. She denies any prior cardiac history. She states she has been having chest pain for a week however worsen this morning. She denies any similar symptoms in the past. Denies any prior heart catheterization. Denies any issues with hematochezia or melena. EKG shows sinus rhythm with ST elevation V2 through V5. REVIEW OF SYSTEMS At the time of my exam: CONSTITUTIONAL: Denies fever or chills. CARDIOVASCULAR: +chest pain,+shortness of breath, no orthopnea, PND or palpitations. RESPIRATORY: Denies cough. GASTROINTESTINAL: Denies abdominal pain, diarrhea, constipation, nausea or vomiting. MUSCULOSKELETAL: Denies myalgias. NEUROLOGIC: Denies numbness, tingling or weakness. ENDOCRINE: Denies fatigue, weight change, polydipsia or polyurina. GENITOURINARY: Denies burning, hematuria or urgency with micturation. HEMATOLOGIC: Denies history of anemia or bleeding. PHYSICAL EXAMINATION Vital signs reviewed. CONSTITUTIONAL: Ill-appearing. HEENT: Head is normocephalic. Pupils are equal, round. Sclerae anicteric. Mucous membranes of the mouth are moist. No JVD. No carotid bruit. CHEST EXAMINATION: Lungs are clear to auscultation. No chest wall tenderness is noted on palpation or with deep breathing. HEART EXAMINATION: Regular rate and rhythm. S1, S2 heard. No murmurs, gallops or rub. ABDOMEN: Soft, nontender. Positive bowel sounds. EXTREMITIES: 2+ peripheral pulses, no lower extremity edema and no calf tenderness. NEUROLOGIC EXAMINATION: Patient is awake, alert and oriented x3. ASSESSMENT 1. Cardiogenic shock 2. Anterior STEMI 3. Diabetes mellitus type 2 PLAN Patient with low blood pressures and cardiogenic shock. Discussed surgeon heart catheterization and patient is agreeable. Heparin drip, aspirin. Supportive care. Further recommendations to follow. Past Medical History Past Medical History: No Reported History History of Any Multi-Drug Resistant Organisms: None Reported Past Surgical History: Hysterectomy Additional Past Surgical History / Comment(s): shoulder surgery, knuckle stitches Past Psychological History: No Psychological Hx Reported Smoking Status: Never smoker Past Alcohol Use History: None Reported Past Drug Use History: None Reported - Past Family History Father History Unknown: Yes Family Medical History: Diabetes Mellitus Additional Family Medical History / Comment(s): CABG Mother History Unknown: Yes Additional Family Medical History / Comment(s): borderline diabetic Sister(s) History Unknown: Yes Family Medical History: Diabetes Mellitus Additional Family Medical History / Comment(s): heart disease, pt states "a lot of other things that I don't know" Brother(s) Additional Family Medical History / Comment(s): Unsure Daughter(s) History Unknown: Yes Additional Family Medical History / Comment(s): "stomach ulcers" Brother(s) Son(s) Additional Family Medical History / Comment(s): none known. Medications and Allergies Home Medications Medication Instructions Recorded Confirmed Type glipiZIDE [Glucotrol] 5 mg PO AC-BRKFST #30 tab 01/19/17 Rx metFORMIN HCL [Glucophage] 500 mg PO BID-W/MEALS #60 tab 01/19/17 Rx Allergies Allergy/AdvReac Type Severity Reaction Status Date / Time Penicillins Allergy Unknown Verified 01/20/22 10:26 Iodinated Contrast Media AdvReac BURNING Verified 01/20/22 10:26 [Iodinated Contrast- Oral and IV Dye] Physical Exam Vitals: Vital Signs Temp Pulse Pulse Resp BP Pulse Ox 01/20/22 10:43 81 20 87/68 100 01/20/22 10:32 87 18 92/68 100 01/20/22 10:23 85 01/20/22 10:18 97.6 F 90 26 H 92/35 100 Intake and Output 01/19/22 01/20/22 01/20/22 22:59 06:59 14:59 Other: Weight 47.627 kg Results 01/20/22 10:24 01/20/22 10:24 Cardiac Enzymes 01/20/22 Range/Units 10:24 AST 28 (14-36) U/L CBC 01/20/22 Range/Units 10:24 WBC 18.0 H (3.8-10.6) k/uL RBC 5.94 H (3.80-5.40) m/uL Hgb 16.6 H (11.4-16.0) gm/dL Hct 49.9 H (34.0-46.0) % Plt Count 270 (150-450) k/uL Comprehensive Metabolic Panel 01/20/22 Range/Units 10:24 Sodium 136 L (137-145) mmol/L Potassium 4.6 (3.5-5.1) mmol/L Chloride 102 (98-107) mmol/L Carbon Dioxide 18 L (22-30) mmol/L BUN 17 (7-17) mg/dL Creatinine 1.04 (0.52-1.04) mg/dL Glucose 424 H (74-99) mg/dL Calcium 9.9 (8.4-10.2) mg/dL AST 28 (14-36) U/L ALT 19 (4-34) U/L Alkaline Phosphatase 157 H (38-126) U/L Total Protein 7.8 (6.3-8.2) g/dL Albumin 4.7 (3.5-5.0) g/dL Current Medications Generic Name Dose Route Start Last Admin Trade Name Freq PRN Reason Stop Dose Admin Heparin Sodium (Porcine) 0 unit 01/20/22 10:30 Heparin Sodium 1,000 Un/Ml (10ml Vl) IV PER PROTOCOL PRN Low PTT Protocol Heparin Sodium/Sodium Chloride 250 mls @ 5.715 mls/hr 01/20/22 10:30 01/20/22 10:36 25,000 unit/ Sodium Chloride IV 12 units/kg/hr .Q24H ARNOLD 5.715 mls/hr Administration Protocol 12 UNITS/KG/HR Intake and Output 01/19/22 01/20/22 01/20/22 22:59 06:59 14:59 Other: Weight 47.627 kg Patient Weight 01/21/22 06:59 Weight 47.627 kg 01/20/22 10:24 01/20/22 10:24
[2022-01-20 11:05] VITALS: BP 89/64; PULSE 89; RESP 18
[2022-01-20] MEDS ORDERED: LIDOCAINE 1% INJ 10MG/ML (30 ML VIAL-PF) SQ ONE (11:05)
[2022-01-20] MEDS ORDERED: VERAPAMIL 2.5 MG/ML 2 ML AMP ONE (11:05)
[2022-01-20] MEDS ORDERED: MIDAZOLAM 2 MG/2 ML VIAL IV ONE (11:07)
[2022-01-20] MEDS ORDERED: VERAPAMIL SYRINGE (5 MG/10 ML) INTRAARTER ONE (11:07)
[2022-01-20] MEDS ORDERED: fentaNYL (PF) 50 MCG/ML 2 ML AMP IV ONE (11:07)
[2022-01-20] MEDS: PHENYLEPHRINE-0.9% NACL SYG 1,000 MCG/10 ML SYRINGE IV ONE ×8 (11:10→11:38)
[2022-01-20] MEDS: HEPARIN SODIUM 1,000 UN/ML (10ML VL) IV ONE ×2 (11:13→12:20)
[2022-01-20] MEDS ORDERED: TICAGRELOR 90 MG TAB PO ONE ×2 (11:13→11:15)
[2022-01-20] MEDS ORDERED: TICAGRELOR 90 MG TAB ONE (11:14)
[2022-01-20 11:20] LABS: Basophils # (M) 0.18 k/uL (0-0.2); Lymphocytes # (M) 6.12 k/uL (1.0-4.8); Monocytes # (M) 0.72 k/uL (0-1.0); Neutrophils # (M) 10.98 k/uL (1.3-7.7); Neutrophils % (M) 61 %; Nucleated Red Blood Cells 0 /100 WBC (0-0); RBC Morphology Normal; Total Cells Counted 100
[2022-01-20] MEDS ORDERED: NOREPINEPHRINE 4 MG in SODIUM CHLORIDE 0.9% 250 ML IV ONE (11:26)
[2022-01-20 11:29] LABS: INR 0.9 (<1.2); Partial Thromboplastin Time 24.5 sec (22.0-30.0); Prothrombin Time 10.1 sec (9.0-12.0)
[2022-01-20] MEDS ORDERED: methylPREDNISolone SOD SUCCI 125 MG/2 ML VIAL ONE ×2 (11:34→11:35)
[2022-01-20] MEDS ORDERED: methylPREDNISolone SOD SUCCI 125 MG/2 ML VIAL IV ONE (11:38)
[2022-01-20] MEDS ORDERED: EPINEPHrine 10 ML SYRINGE (0.1 MG/ML) IV ONE (11:50)
[2022-01-20] MEDS ORDERED: AMIODARONE 50 MG/ML 3 ML VIAL IV ONE (11:52)
[2022-01-20] MEDS ORDERED: EPINEPHrine 10 ML SYRINGE (0.1 MG/ML) ONE (11:52)
[2022-01-20] MEDS ORDERED: DEXTROSE 5% IN WATER 50 ML BAG ONE (11:52)
[2022-01-20] MEDS ORDERED: IOPAMIDOL-370 125ML BTL INJ ONE (12:00)
[2022-01-20] MEDS ORDERED: IOPAMIDOL-370 100ML BTL INJ ONE (12:34)
--- NOTE | 2022-01-20 23:02 | P.PRCINT ---
Percutaneous Coronary Int. - Percutaneous Coronary Intervention Percutaneous Coronary Intervention: PROCEDURES PERFORMED: Left heart catheterization, left coronary angiography, PCI proximal to mid LAD with overlapping 2.5 x 38mm, 2.25 x 23mm, 2.25 x 12mm Xience BONNIE, IVUS LAD, Impella CP placement, cardiac arrest INDICATION: Anterior STEMI, cardiogenic shock CONSENT:I have discussed the risks, benefits and alternative therapies for the above-mentioned procedure and for both sedation/analgesia as well as necessary blood product administration, if indicated, as they pertain to this patient. The patient has indicated understanding and acceptance of the risks and procedures discussed. PROCEDURE: After the risks, benefits and alternatives of the above mentioned procedure explained in detail with the patient, informed consent was obtained. Patient was taken to the catheterization lab and prepped and draped in usual fashion. 1% lidocaine was used to anesthetize the right radial artery. A 6- Nepalese sheath was placed in the right radial artery using modified Seldinger technique. Patient was noted to be hypotensive before beginning injections. Patient was noted to have a non anaphylactic reaction to Iodine however steroids and Benadryl were additionally given. A 6Fr CLS 3.5 guide was used to engage the left main. Angiography was performed and showed tandem stenoses of the LAD with thrombus and left to right collaterals. The decision was made to perform PCI of the LAD. Heparin was given. A 0.014 BMW wire was advanced into the distal LAD. Patient had needed a couple rounds of Neosynephrine and therefore using ultrasound the right and left femoral access was assessed however was noted to be small measuring approximately 4-5mm and therefore not ideal for Impella placement. Therefore intervention was continued. A 2.0 balloon was used to predilate the lesions. The wire appeared almost subintimal on angiography and therefore IVUS was performed before any stenting which showed diffuse disease, small LAD measuring approximately 2.25 distally and 2.5 proximally. Overlapping 2.25 x 12mm distally, 2.25 x 23mm and 2.5 x 38mm Xience BONNIE were placed from the ostium to the mid to distal LAD. Pre intervention there was CHELI 1-2 flow and 95% stenosis and post intervention there was CHELI 2-3 flow with <10% stenosis. There was occlusion of a side branch however did not have a change to balloon. Repeat IVUS was recommended however patient started to become more and more hypotensive despite vasopressors. BP's in the 50-60's systolic and therefore benefits of Impella outweighed potential risk of vascular injury to the right femoral and therefore a 6Fr sheath was placed in the right femoral artery using ultrasound guidance. This was upgraded to a 14Fr sheath. A 6Fr pigtail was used to cross the aortic valve and then a Impella CP was placed in the LV and turned on. She had dropped her BP to 40's by time Impella was being placed and therefore chest compressions were begun. Initial outputs of 3.0 - 3.5 L/min however patient remained hypotensive with little to no pulsatility and additionally went into recurrent Vfib requiring shock. Chest compressions were continued and patient was intubated by anesthesia. Patient did develop asystole and therefore a 6Fr sheath was placed in the right femoral vein and a TVP was advanced into the RV. Patient despite multiple rounds of compressions. Conscious Sedation: Patient was monitored under the direct supervision of vision of myself for conscious sedation using Versed and fentanyl for a total duration of 33 minutes HEMODYNAMICS: Aorta: 80/44 SELECTIVE CORONARY ARTERIOGRAPHY: LEFT MAIN: The left main is a moderate caliber vessel which bifurcates into the LAD and circumflex. There is no significant stenosis. LEFT ANTERIOR DESCENDING CORONARY ARTERY: LAD is a small to moderate caliber vessel which wraps around to the apex. There is diffuse disease of the LAD including proximal LAD 70%, proximal to mid 95%, mid to distal 95% stenoses. There is 95% stenosis of a small caliber diagonal 1 branch. LEFT CIRCUMFLEX CORONARY ARTERY: Left circumflex is a moderate caliber vessel with mild luminal irregularities. RIGHT CORONARY ARTERY: The right coronary artery was not imaged however noted to have left to right collaterals. FINAL IMPRESSION: 1. CAD as described above with tandem 95% stenoses of the LAD, 95% stenosis of the diagonal 1, assumed 100% RCA with left to right collaterals. 2. Cardiogenic shock 3. S/p cardiac arrest/ related to IA and cardiogenic shock
== END 2022-01-20 14:08 | disposition expired | DRG 215 ==
LOC: EC 10:18 → 2SICU 10:50
PROVIDERS: ADMIT Internal Medicine; ATTEND Internal Medicine
PROC: B2111ZZ Fluoroscopy of Multiple Coronary Arteries using Low Osmolar Contrast (ICD-10-PCS; principal; 2022-01-20 10:53)
PROC: B240ZZ3 Ultrasonography of Single Coronary Artery, Intravascular (ICD-10-PCS; principal; 2022-01-20 10:53)
PROC: 02HA3RZ Insertion of Short-term External Heart Assist System into Heart, Percutaneous Approach (ICD-10-PCS; principal; 2022-01-20 10:53)
PROC: 4A023N7 Measurement of Cardiac Sampling and Pressure, Left Heart, Percutaneous Approach (ICD-10-PCS; principal; 2022-01-20 10:53)
PROC: 027036Z Dilation of Coronary Artery, One Artery with Three Drug-eluting Intraluminal Devices, Percutaneous Approach (ICD-10-PCS; principal; 2022-01-20 10:53)
PROC: 5A0221D Assistance with Cardiac Output using Impeller Pump, Continuous (ICD-10-PCS; principal; 2022-01-20 10:53)
PROC: 3E033XZ Introduction of Vasopressor into Peripheral Vein, Percutaneous Approach (ICD-10-PCS; 2022-01-20 10:53)
DX: I21.09 ST elevation (STEMI) myocardial infarction involving other coronary artery of anterior wall (principal); R57.0 Cardiogenic shock; I46.2 Cardiac arrest due to underlying cardiac condition; F17.210 Nicotine dependence, cigarettes, uncomplicated; E11.9 Type 2 diabetes mellitus without complications; Z79.84 Long term (current) use of oral hypoglycemic drugs; Z90.710 Acquired absence of both cervix and uterus; Z88.0 Allergy status to penicillin; Z91.041 Radiographic dye allergy status; Z79.899 Other long term (current) drug therapy
CPT/HCPCS: 33990; 36415; 71045; 80053; 83735; 83880; 84484; 85025; 85379; 85610; 85730; 92950; 92978; 93005; 93454; 94002; 96374; 99291